=== PATIENT | male | born 1955 | race Caucasian/White ===

== ENCOUNTER 2018-08-26 06:15 | Observation (INO) ==
[2018-08-26] MEDS ORDERED: IOPAMIDOL 100 ML BOTTLE IV ONE (06:16)
--- NOTE | 2018-08-26 06:50 | Emergency Department Note ---
Dizziness HPI - General Chief Complaint: Dizziness Stated Complaint: dizziness, vomit diarrhea Time Seen by Provider: 08/26/18 06:34 Source: patient Mode of arrival: EMS Limitations: no limitations - History of Present Illness HPI Narrative: This 63-year-old male reports onset of multiple episodes of diarrhea beginning around 430 this morning may be up to 10 times. He is also vomited 10- 15 times. He has a long-standing history of diarrhea for which he has taken Imodium off and on in the past year or so. Denies fevers as far as he knows at home. Has felt chills today and sweatiness. REVIEW OF SYSTEMS: Denies chest pain. Denies shortness of breath. Denies abdominal pain, or nausea. Denies hematochezia or hemoptysis. Denies back pain. Denies headaches. Feels generally weak and some lightheaded dizzy feel Denies anxiety, depression. - Related Data Home Medications Medication Instructions Recorded Confirmed baclofen 20 mg tablet 20 mg PO QID 08/16/17 08/26/18 betamethasone dipropionate 0.05 % 1 applic TOPICAL QDAY 08/16/17 09/23/17 topical ointment cyclosporine 0.05 % eye drops 1 drp OPHTHALMIC Q12H 08/16/17 09/23/17 indomethacin 50 mg capsule 50 mg PO BID 08/16/17 08/26/18 cholecalciferol (vitamin D3) 2,000 2,000 unit PO ONCE 09/23/17 09/23/17 unit capsule Allergies Allergy/AdvReac Type Severity Reaction Status Date / Time No Known Drug Allergies Allergy Verified 09/23/17 13:47 Past Medical History - Past Medical History [facility] Narrative: Medical History (Last Updated 08/26/18 @ 06:38 by Raul Tierney DO) Viral hepatitis C (Chronic) Osteoarthritis (Chronic) GERD (gastroesophageal reflux disease) (Chronic) Bronchiectasis (Chronic) Snoring (Chronic) Back pain (Chronic) Urticaria (Chronic) Abnormal chest CT (Chronic) Degeneration of lumbar or lumbosacral intervertebral disc (Chronic) Glaucoma (Chronic) Arthralgia (Chronic) Irritable bowel syndrome with diarrhea (Chronic) Chronic diarrhea (Chronic) Multiple nodules of lung (Chronic) Low tension glaucoma (Chronic) Exposure to air pollution (Chronic) Disturbance of oral epithelium (Chronic) Cannabis dependence in remission (Chronic) Asbestos exposure (Chronic) BPH with obstruction/lower urinary tract symptoms (Chronic) Right knee pain (Chronic) Sigmoid diverticulosis (Chronic) Dermatofibroma (Chronic) Blurred vision (Resolved) Closed fracture of wrist (Resolved) Constipation (Resolved) Hiatal hernia (Resolved) Keratosis (Resolved) Pneumonia (Resolved) Shoulder pain (Resolved) Testicular nodule (Resolved) Vitamin D deficiency (Resolved) Past Surgical History (Last Updated 08/26/18 @ 06:40 by Raul Tierney DO) Status post cataract extraction (Acute) History of colonoscopy with polypectomy (Chronic 03/25/13) History of esophagogastroduodenoscopy (EGD) (Chronic 03/25/13) History of herniorrhaphy (Chronic) History of liver biopsy (Chronic) History of open reduction and internal fixation (ORIF) procedure (Chronic) History of surgery (Chronic) S/P hernia repair (Resolved) Family History (Last Reviewed 09/23/17 @ 14:32 by Jordan Ramos MD) Mother Diabetes Pulmonary disease Father Heart disease Brother Cancer Sister Cancer Medical history: Reports: hypertension (maybe). Denies: CVA, DVT, myocardial infarction, pulmonary embolus - Social History smoking status: Never smoker Physical Exam Limitations: no limitations General appearance: alert, other (persisting eyes closed (to reduce dizziness)) Head: atraumatic, normocephalic ENT: mucous membranes dry Neck: Present: trachea midline. Absent: lymphadenopathy, thyromegaly Chest: Present: symmetric chest wall rise Respiratory: Present: normal lung sounds bilaterally. Absent: respiratory distress, wheezes, stridor, accessory muscle use, prolonged expiratory phase Cardiovascular: Present: regular rate, normal rhythm. Absent: systolic murmur, diastolic murmur Abdominal: Present: soft. Absent: distention, tenderness, guarding, rebound, rigidity, organomegaly, mass Extremities: Absent: pedal edema, pretibial edema, calf tenderness Neurological: Present: alert, oriented X3 Psychiatric: Present: flat affect, serious, other (Quiet voice) Skin: Present: warm, dry Course Vital Signs Temperature 96.4 F L 08/26/18 06:16 Pulse Rate 72 08/26/18 06:16 Respiratory Rate 18 08/26/18 06:16 Blood Pressure 151/94 08/26/18 06:16 Pulse Oximetry (%) 96 08/26/18 06:16 Temperature 96.4 F L 08/26/18 06:16 Pulse Rate 71 08/26/18 08:31 Respiratory Rate 18 08/26/18 06:16 Blood Pressure 146/91 08/26/18 08:31 Pulse Oximetry (%) 98 08/26/18 08:31 Dizziness - MDM Narrative Medical decision making narrative: 6:40 AM - acute onset of vomiting and diarrhea on a background of some chronic diarrhea. We will do labs in give some fluids. Patient was given an IV bolus of lactated Ringer's 1 L and was feeling some better with some eye opening but still complaining that things were very shaky in his vision. No specific vertigo. An additional 500 of LR ordered. Labs were unremarkable. Patient is given a dose of Compazine 10 mg. Because of recurring back spasms he has been on baclofen at home and requests this. Robaxin available for IV use ordered. Final disposition because of change in shift per Dr. Salcedo. - Lab Data Result diagrams: 08/26/18 07:06 08/26/18 07:06 Lab Results 08/26/18 08/26/18 Range/Units 07:06 07:06 WBC 7.8 (4.5-11.0) K/mcL RBC 5.13 (4.50-5.90) M/mcL Hgb 16.1 (13.5-16.5) g/dL Hct 48.9 (41.0-55.0) % MCV 95.3 (80.0-100.0) fL MCH 31.4 (26.0-34.0) pg MCHC 33.0 (31.0-36.0) g/dL RDW 12.1 (11.5-14.5) % Plt Count 178 (140-440) K/mcL MPV 8.4 (7.4-10.4) fL Gran % 85.9 H (38.0-78.0) % Lymph % (Auto) 10.8 L (15.5-49.0) % [place] % (Auto) 2.2 (1.0-12.0) % Eos % (Auto) 1.0 (0.0-7.0) % Baso % (Auto) 0.1 (0.0-2.0) % Gran # 6.7 (1.8-8.0) K/mcL Lymph # (Auto) 0.8 L (1.5-4.8) K/mcL [place] # (Auto) 0.2 (0.1-0.9) K/mcL Eos # (Auto) 0.1 (0.0-0.7) K/mcL Baso # (Auto) 0 (0.0-0.3) K/mcL Sodium 143 (133-145) mmol/L Potassium 4.4 (3.3-5.1) mmol/L Chloride 108 (96-108) mmol/L Carbon Dioxide 27 (22-30) mmol/L Anion Gap 8.0 (8-16) BUN 13 (8-23) mg/dl Creatinine 0.9 (0.7-1.2) mg/dl GFR Calculation 91 Glucose 155 H (70-105) mg/dL Calcium 9.0 (8.6-10.4) mg/dl Total Bilirubin 0.7 (0.0-1.0) mg/dL AST 21 (0-37) U/l ALT 25 (0-40) U/l Alkaline Phosphatase 42 (39-117) U/L C-Reactive Protein < 0.3 (0.0-0.8) mg/dl Total Protein 7.0 (5.9-8.4) gm/dL Albumin 4.3 (3.2-5.2) gm/dL Globulin 2.7 (2.2-3.7) gm/dL Albumin/Globulin Ratio 1.6 (1.0-2.3) Disposition Pt seen by REHAB DIRECTOR/PA only: No Clinical Impression: Visual disturbance, Nausea, vomiting and diarrhea Disposition: Still a Patient Condition: Undetermined Referrals: Tripp Joseph [Primary Care Provider] -
[2018-08-26] MEDS ORDERED: LACTATED RINGERS 1,000 ML IV ONE (06:53)
[2018-08-26 08:06] LABS: Basophils # (Auto) 0 K/mcL (0.0-0.3); Basophils % (Auto) 0.1 % (0.0-2.0); Eosinophils # (Auto) 0.1 K/mcL (0.0-0.7); Granulocytes % (Auto) 85.9 % (38.0-78.0); Lymphocytes # (Auto) 0.8 K/mcL (1.5-4.8); Lymphocytes % (Auto) 10.8 % (15.5-49.0); Mean Cell Volume 95.3 fL (80.0-100.0); Monocytes # (Auto) 0.2 K/mcL (0.1-0.9); Monocytes % (Auto) 2.2 % (1.0-12.0); Platelet Count 178 K/mcL (140-440); RBC 5.13 M/mcL (4.50-5.90); Red Cell Distribution Width 12.1 % (11.5-14.5)
[2018-08-26 08:27] LABS: ALT/SGPT 25 U/l (0-40); Albumin 4.3 gm/dL (3.2-5.2); Albumin/Globulin Ratio 1.6 (1.0-2.3); Alkaline Phosphatase 42 U/L (39-117); Blood Urea Nitrogen 13 mg/dl (8-23); C-Reactive Protein < 0.3 mg/dl (0.0-0.8)
[2018-08-26] MEDS ORDERED: PROCHLORPERAZINE 10 MG/2 ML VIAL IV ONE (08:39)
[2018-08-26] MEDS ORDERED: METHOCARBAMOL 1,000 MG/10 ML VIAL IV ONE (08:41)
[2018-08-26] MEDS ORDERED: LACTATED RINGERS 500 ML IV ONE (08:56)
[2018-08-26] MEDS ORDERED: MECLIZINE 25 MG TABLET PO ONE (10:17)
[2018-08-26] MEDS ORDERED: METOCLOPRAMIDE 10 MG/2 ML VIAL IV ONE (10:17)
--- NOTE | 2018-08-26 14:15 | Cat Scan Report ---
CLINICAL INFORMATION: Vertigo COMPARISON: None. TECHNIQUE: Axial noncontrast-enhanced images through the brain. FINDINGS: No acute intracranial hemorrhage. No subdural hematoma. No subarachnoid hemorrhage. No intra-axial hematoma. No focal intra-axial attenuation abnormality. No localized mass effect. No midline shift. Brain volume is normal. No hydrocephalus. Brainstem and cerebellum are negative. Basilar cisterns are normal. No hyperdense middle cerebral artery sign. No calvarial fracture. No lytic lesion. Temporal bones are negative. There is inflammatory disease within ethmoid and sphenoid sinuses. IMPRESSION: 1. Inflammatory disease within ethmoid and sphenoid sinuses 2. Otherwise negative noncontrast enhanced brain CT scan The exam was performed using radiation dose optimization techniques including, but not limited to, automated exposure control, adjustment of the mA and/or kV according to patient size and use of iterative reconstruction technique. Interpreted and Authenticated by: Lm Joe 08/26/18
--- NOTE | 2018-08-26 14:37 | Cat Scan Report ---
CLINICAL INFORMATION: Vomiting. Diarrhea. TECHNIQUE: Axial images through the neck. 80 mL contrast material injected. Scans performed during arterial phase. Sagittal and coronal MIP reformatted images. MPR reformatted images. COMPARISON: Brain CT scan dated 08/26/2018 FINDINGS: Centrilobular emphysema in both upper lobes. Appearance suggests smoking history. No focal mass or consolidation. No superior mediastinal adenopathy. Calcified atherosclerotic plaque in the aortic arch. There is calcified plaque at the origin of the left subclavian artery. No stenosis. There is calcified plaque at the origin of the left vertebral artery. There is no stenosis. Origin of the left common carotid artery is negative. Origin of the innominate artery is negative. No focal stenosis. There is calcification at the origins of the right common carotid artery and right subclavian artery. No origin stenosis. Origin of the right vertebral artery is negative. No stenosis. There is calcified plaque in the proximal internal carotid artery bilaterally. There is mild soft plaque in the distal right common carotid artery. There is no hemodynamically significant stenosis. No ulceration. No evidence for fibromuscular dysplasia. No internal carotid artery dissection. Vertebral arteries are patent without focal stenosis. No solid or cystic soft tissue mass within the neck. No prevertebral soft tissue swelling. There is multilevel degenerative disc disease in the cervical spine. IMPRESSION: 1. Calcified atherosclerotic plaque in the proximal internal carotid artery bilaterally 2. No hemodynamically significant stenosis. No ulceration 3. No hemodynamically significant stenosis Interpreted and Authenticated by: Lm Joe 08/26/18
--- NOTE | 2018-08-26 14:51 | Cat Scan Report ---
CLINICAL INFORMATION: Vomiting and diarrhea TECHNIQUE: CTA brain performed. 80 mL contrast material injected and scans performed during arterial phase. Sagittal and coronal MIP reformatted images. COMPARISON: None. FINDINGS: The petrous, cavernous, supraclinoid segments of the internal carotid arteries are negative bilaterally. M1 segments and middle cerebral arteries and A1 segments and the anterior cerebral arteries are negative. Intracranial vertebral arteries are negative. Basilar artery is negative. No intracranial aneurysm or arteriovenous malformation. No branch occlusion. There is inflammatory disease within the ethmoid and sphenoid air cells. This was described on previous brain CT scan. There are also small polyps or retention cysts in the right maxillary sinus. Temporal bones are negative. IMPRESSION: Negative brain CTA. Interpreted and Authenticated by: Lm Joe 08/26/18
[2018-08-26] MEDS ORDERED: ACETAMINOPHEN 325 MG TABLET PO ONE (14:59)
[2018-08-26] MEDS ORDERED: diphenhydrAMINE 50 MG/ML VIAL IV ONE (15:01)
[2018-08-26] MEDS ORDERED: HYDROmorphone 2 MG/ML VIAL IV PRN (15:01)
--- NOTE | 2018-08-26 15:07 | Emergency Department Note ---
Dizziness HPI - General Chief Complaint: Dizziness Stated Complaint: dizziness, vomit diarrhea Time Seen by Provider: 08/26/18 06:34 Source: patient Mode of arrival: EMS Limitations: no limitations - History of Present Illness HPI Narrative: This patient seems very debilitated by his benign positional vertigo and is developed a headache. I did do CT of head which was normal and CTA of head and neck which was normal except for some mild plaquing in the carotid arteries. I discussed case with Dr. Mosqueda and he will be admitted to the hospital. - Related Data Home Medications Medication Instructions Recorded Confirmed baclofen 20 mg tablet 20 mg PO QID 08/16/17 08/26/18 betamethasone dipropionate 0.05 % 1 applic TOPICAL QDAY 08/16/17 09/23/17 topical ointment cyclosporine 0.05 % eye drops 1 drp OPHTHALMIC Q12H 08/16/17 09/23/17 indomethacin 50 mg capsule 50 mg PO BID 08/16/17 08/26/18 cholecalciferol (vitamin D3) 2,000 2,000 unit PO ONCE 09/23/17 09/23/17 unit capsule Allergies Allergy/AdvReac Type Severity Reaction Status Date / Time No Known Drug Allergies Allergy Verified 09/23/17 13:47 Past Medical History - Past Medical History Medical history: Reports: hypertension (maybe). Denies: CVA, DVT, myocardial infarction, pulmonary embolus - Social History smoking status: Never smoker Physical Exam Limitations: no limitations General appearance: alert, other (persisting eyes closed (to reduce dizziness)) Course Vital Signs Temperature 96.4 F L 08/26/18 06:16 Pulse Rate 72 08/26/18 06:16 Respiratory Rate 18 08/26/18 06:16 Blood Pressure 151/94 08/26/18 06:16 Pulse Oximetry (%) 96 08/26/18 06:16 Temperature 96.4 F L 08/26/18 06:16 Pulse Rate 107 H 08/26/18 14:15 Respiratory Rate 18 08/26/18 06:16 Blood Pressure 136/79 08/26/18 14:04 Pulse Oximetry (%) 93 08/26/18 14:15 Dizziness - Lab Data Result diagrams: 08/26/18 07:06 08/26/18 07:06 Lab Results 08/26/18 08/26/18 Range/Units 07:06 07:06 WBC 7.8 (4.5-11.0) K/mcL RBC 5.13 (4.50-5.90) M/mcL Hgb 16.1 (13.5-16.5) g/dL Hct 48.9 (41.0-55.0) % MCV 95.3 (80.0-100.0) fL MCH 31.4 (26.0-34.0) pg MCHC 33.0 (31.0-36.0) g/dL RDW 12.1 (11.5-14.5) % Plt Count 178 (140-440) K/mcL MPV 8.4 (7.4-10.4) fL Gran % 85.9 H (38.0-78.0) % Lymph % (Auto) 10.8 L (15.5-49.0) % [place] % (Auto) 2.2 (1.0-12.0) % Eos % (Auto) 1.0 (0.0-7.0) % Baso % (Auto) 0.1 (0.0-2.0) % Gran # 6.7 (1.8-8.0) K/mcL Lymph # (Auto) 0.8 L (1.5-4.8) K/mcL [place] # (Auto) 0.2 (0.1-0.9) K/mcL Eos # (Auto) 0.1 (0.0-0.7) K/mcL Baso # (Auto) 0 (0.0-0.3) K/mcL Sodium 143 (133-145) mmol/L Potassium 4.4 (3.3-5.1) mmol/L Chloride 108 (96-108) mmol/L Carbon Dioxide 27 (22-30) mmol/L Anion Gap 8.0 (8-16) BUN 13 (8-23) mg/dl Creatinine 0.9 (0.7-1.2) mg/dl GFR Calculation 91 Glucose 155 H (70-105) mg/dL Calcium 9.0 (8.6-10.4) mg/dl Total Bilirubin 0.7 (0.0-1.0) mg/dL AST 21 (0-37) U/l ALT 25 (0-40) U/l Alkaline Phosphatase 42 (39-117) U/L C-Reactive Protein < 0.3 (0.0-0.8) mg/dl Total Protein 7.0 (5.9-8.4) gm/dL Albumin 4.3 (3.2-5.2) gm/dL Globulin 2.7 (2.2-3.7) gm/dL Albumin/Globulin Ratio 1.6 (1.0-2.3) Disposition Pt seen by BRANCH CREDIT COUNSELOR/PA only: No Clinical Impression: Visual disturbance, Nausea, vomiting and diarrhea, Benign positional vertigo Disposition: Xfer As Outpt/Obs ([facility]) Condition: Good Referrals: Tripp Joseph [Primary Care Provider] - Time of Disposition: 15:07
--- NOTE | 2018-08-26 15:12 | Internal Med History&Physical ---
Medical - H&P: HPI Patient information: Note initiated : 08/26/18 at 3:11 pm Service Date, if different from initiated Date: [] Patient: Oliverio Her a 63 y/o M admitted on for Dizziness, Vomiting, Diarrhea. Chief Complaint: [] Chief complaint: dirrhea, vertigo History of present illness: Mr. Her is a 63 year old M with a history of substance abuse in the past/hepatitis C treated with [employer] who works at [employer] in [employer]. [facility] he woke up this morning and did not half an hour started experiencing dizziness/vertigo associated with diarrhea 8-10 jackson es. Symptoms progressed with increasing nausea secondary to spinning sensation. He felt that he was drifting to the left while walking and driving. He denies recent sick contact. Endorses to nonbloody soft diarrhea. He denies recent medication changes. He endorses associated headache along with myalgia or neck stiffness and mild photophobia. He was evaluated in the ER and was continued on crystalloids and symptomatic management however his symptoms continue to deteriorate with relentless vertigo on minimal head movement. He also spiked a temperature of 101. He underwent CT head along with CT angiogram which was unremarkable. Subsequently hospitalist service is consulted At the time of evaluation patient is fairly distraught due to vertigo. He endorses to aggravation of symptoms with minimal movement. Denies recent changes in medications. He endorses to recent ear infection along with painful left ear 10 days ago. Denies projectile vomiting. He also endorses dysuria and worried about chlamydia infection from recent unprotected intercourse. He denies high risk HIV behavior and quit IVDU 27 years ago. Review of systems A 10 point review of systems was performed and is negative except as discussed above Medical - H&P: PMH Medical history: Snoring (Chronic) Back pain (Chronic) Urticaria (Chronic) Degeneration of lumbar or lumbosacral intervertebral disc (Chronic) Closed fracture of wrist (Chronic) Pneumonia (Chronic) Blurred vision (Chronic) Keratosis (Chronic) Dermatofibroma (Chronic) Arthralgia (Chronic) URI (upper respiratory infection) (Chronic) Irritable bowel syndrome with diarrhea (Chronic) Shoulder pain (Chronic) Chronic diarrhea (Chronic) Constipation (Chronic) Multiple nodules of lung (Chronic) Adenopathy (Chronic) Low tension glaucoma (Chronic) Pharyngitis (Chronic) Exposure to air pollution (Chronic) Disturbance of oral epithelium (Chronic) h/o left buccal mucosal/recess lesion Cannabis dependence in remission (Chronic) Asbestos exposure (Chronic) BPH with obstruction/lower urinary tract symptoms (Chronic) Otalgia (Chronic) Viral hepatitis C (Chronic) S/P hernia repair (Resolved) Surgical History Follows up with [facility] No pertinent past surgical history (Acute) Family History Mother , 74 yrs Diabetes Pulmonary disease Father , 75 yrs Heart disease Brother , 2 brothers Cancer Sister Cancer 4 total sisters, 2 with cancer Medical - H&P: Meds Home Medications Medication Instructions Recorded Confirmed Type baclofen 20 mg tablet 20 mg PO QID 08/16/17 08/26/18 History cholecalciferol (vitamin D3) 2,000 2,000 unit PO ONCE 09/23/17 08/26/18 History unit capsule Multivit,Th Iron,Other Min 1 each PO DAILY 08/26/18 08/26/18 History [Complete Multivitamin] Allergies Allergy/AdvReac Type Severity Reaction Status Date / Time No Known Drug Allergies Allergy Verified 09/23/17 13:47 Medical - H&P: Exam - Constitutional Vitals: Temp Pulse Resp BP Pulse Ox 96.4 F L 107 H 18 136/79 93 08/26/18 06:16 08/26/18 14:15 08/26/18 06:16 08/26/18 14:04 08/26/18 14:15 General appearance: moderate distress (Secondary to vertigo) Exam: Head normocephalic Eye movement symmetrical, no diplopia No ear or nose discharged Oral cavity dry Neck no lymphadenopathy S1-S2 tachycardia Diminished breath sounds bases Abdomen soft Lower extremity no cyanosis clubbing Skin no suspicious lesion Psych alert but anxious Neuro nonfocal Medical - H&P: Reslt - Labs CBC & Chem 7: 08/26/18 07:06 08/26/18 07:06 Labs: Short CBC 08/26/18 Range/Units 07:06 WBC 7.8 (4.5-11.0) K/mcL Hgb 16.1 (13.5-16.5) g/dL Hct 48.9 (41.0-55.0) % Plt Count 178 (140-440) K/mcL BMP 08/26/18 07:06 Sodium 143 Potassium 4.4 Chloride 108 Carbon Dioxide 27 BUN 13 Creatinine 0.9 Glucose 155 H Calcium 9.0 Liver Function 08/26/18 Range/Units 07:06 Total Bilirubin 0.7 (0.0-1.0) mg/dL AST 21 (0-37) U/l ALT 25 (0-40) U/l Alkaline Phosphatase 42 (39-117) U/L Albumin 4.3 (3.2-5.2) gm/dL Medical - H&P: A/P (1) Vertigo Current visit: Yes Status: Acute * Fever/headache-rule out acute meningitis. Start empiric antibiotic coverage. Lumbar puncture * Acute vertigo-etiology in question. Rule out acute infectious labyrinthitis versus basilar CVA versus positional vertigo. MRI/lumbar puncture. * Diarrhea-supportive management * Headache-as needed analgesic * Full code * Prophylaxis heparin Plan * Telemetry admit * Empiric meningitis treatment * Lumbar puncture * MRI brain * Vertigo evaluation
[2018-08-26] MEDS ORDERED: diphenhydrAMINE 50 MG/ML VIAL IV PRN (16:33)
[2018-08-26] MEDS ORDERED: guaiFENesin/CODEINE 10 ML UDC PO PRN (16:33)
[2018-08-26] MEDS ORDERED: ACETAMINOPHEN 1,000 MG/100 ML BOTTLE IV PRN (16:33)
[2018-08-26] MEDS ORDERED: POTASSIUM CHLORIDE 20 MEQ PACKET PO PRN (16:33)
[2018-08-26] MEDS ORDERED: MAGNESIUM SULFATE 2 GM/50 ML BAG IV PRN (16:33)
[2018-08-26] MEDS ORDERED: VANCOMYCIN PER PHARMACY IV SCH (17:06)
[2018-08-26] MEDS ORDERED: ACYCLOVIR SODIUM 500 MG VIAL IV SCH (17:15)
[2018-08-26] MEDS: 0.9 % SODIUM CHLORIDE 1,000 ML IV SCH (17:30)
[2018-08-26] MEDS ORDERED: KETAMINE 100 MG/ML ML IV ONE (18:00)
[2018-08-26] MEDS ORDERED: MIDAZOLAM 5 MG/5 ML VIAL IV ONE (18:00)
[2018-08-26] MEDS ORDERED: VANCOMYCIN 500 MG in 0.9 % SODIUM CHLORIDE 100 ML IV SCH (18:00)
[2018-08-26 18:50] LABS: C-Reactive Protein < 0.3 mg/dl (0.0-0.8)
[2018-08-26] MEDS ORDERED: ACYCLOVIR SODIUM IV ONE (19:00)
[2018-08-26] MEDS ORDERED: SODIUM CHLORIDE 0.9% IV ONE (19:00)
[2018-08-26] MEDS: cefTRIAXone 2 GM in DEXTROSE 5% IN WATER 50 ML IV SCH (19:00)
[2018-08-26] MEDS: VANCOMYCIN 1,500 MG in 0.9 % SODIUM CHLORIDE 500 ML IV SCH (19:15)
[2018-08-26 19:21] LABS: Glucose,CSF 76 mg/dL (45-75)
[2018-08-26 19:41] LABS: Appearance,Urine CLEAR; Bilirubin,Urine NEG (NEG); Color,Urine YELLOW; Glucose,Urine (UA) NEGATIVE (NEG); Leukocyte Esterase,Urine NEG /uL (NEG); Protein,Urine NEG (NEG); Specific Gravity,Urine 1.051 (1.000-1.035); Urine Blood NEG mg/dL (<0.03); Urobilinogen,Urine NEG (NEG)
[2018-08-26] MEDS: BUTALB/ACETAMINOPHEN/CAFFEINE 1 TABLET PO PRN (20:04)
[2018-08-26 20:06] LABS: Appearance,CSF CLEAR
[2018-08-26 20:43] LABS: Nucleated Cells,CSF 1 /cumm (0-5); Red Blood Cell,CSF 34 /cumm (0-1)
[2018-08-26 20:48] LABS: Lymphocytes,CSF 30 % (40-80); Monocytes,CSF 70 % (15-45); Total Cell Ct,CSF 10
[2018-08-26] MEDS: 0.9 % SODIUM CHLORIDE 10 ML SYRINGE IV SCH (21:05)
[2018-08-26] MEDS: HEPARIN 5,000 UNIT/ML VIAL SQ SCH (21:38)
[2018-08-26] MEDS: DOCUSATE SODIUM 100 MG CAPSULE PO SCH (21:39)
[2018-08-26] MEDS: SENNOSIDES/DOCUSATE SODIUM 1 TAB TABLET PO SCH (21:39)
[2018-08-27] MEDS ORDERED: ACYCLOVIR SODIUM 800 MG in 0.9 % SODIUM CHLORIDE 150 ML IV SCH (03:00)
[2018-08-27] MEDS: 0.9 % SODIUM CHLORIDE 10 ML SYRINGE IV SCH ×3 (05:28→20:22)
[2018-08-27 06:46] LABS: Mean Cell Volume 95.9 fL (80.0-100.0); Mean Corpuscular HGB Conc 33.3 g/dL (31.0-36.0); Platelet Count 170 K/mcL (140-440); RBC 4.52 M/mcL (4.50-5.90); Red Cell Distribution Width 12.1 % (11.5-14.5)
[2018-08-27 07:12] LABS: ALT/SGPT 19 U/l (0-40); Albumin 3.8 gm/dL (3.2-5.2); Albumin/Globulin Ratio 1.7 (1.0-2.3); Alkaline Phosphatase 37 U/L (39-117); Bilirubin,Direct < 0.2 mg/dL (0.0-0.3); Blood Urea Nitrogen 10 mg/dl (8-23); Gamma Glutamyl Transpeptidase 12 U/L (8-61); Uric Acid 4.4 mg/dL (2.5-8.0)
[2018-08-27 07:51] LABS: Eosinophils % (Manual) 1 % (0-7); Lymphocytes % 25 % (15-49); Monocytes % (Manual) 4 % (1-12); Platelet Estimate NORMAL (NORMAL); RBC Morphology NORMAL (NORMAL); Segmented Neutrophils % 67 % (38-78)
[2018-08-27] MEDS: cefTRIAXone 2 GM in DEXTROSE 5% IN WATER 50 ML IV SCH (09:03)
[2018-08-27] MEDS: VANCOMYCIN 1,500 MG in 0.9 % SODIUM CHLORIDE 500 ML IV SCH ×2 (09:03→20:20)
[2018-08-27] MEDS: MULTIVIT,THER IRON,CA,FA & MIN 1 TABLET PO SCH (09:04)
[2018-08-27] MEDS: DOCUSATE SODIUM 100 MG CAPSULE PO SCH ×2 (09:04→20:22)
[2018-08-27] MEDS: HEPARIN 5,000 UNIT/ML VIAL SQ SCH ×2 (09:04→20:21)
[2018-08-27] MEDS ORDERED: MECLIZINE 25 MG TABLET PO PRN (11:15)
--- NOTE | 2018-08-27 11:16 | Internal Med Progress Note ---
Medical - PN: Subj Patient information: Note initiated : 08/27/18 at 11:14 am Service Date, if different from initiated Date: [] Patient: Oliverio Her a 63 y/o M admitted on 08/26/18 for Dizziness, Vomiting, Diarrhea. Chief Complaint: [] Interval history: Mr. Her is a 63 year old M with a history of substance abuse in the past/hepatitis C treated with [employer] who works at [employer] in [employer]. Patient comes in to [facility] after he woke up this morning and did not half an hour started experiencing dizziness/vertigo associated with diarrhea 8-10 times. Symptoms progressed with increasing nausea secondary to spinning sensation. He felt that he was drifting to the left while walking and driving. He denies recent sick contact. Endorses to nonbloody soft diarrhea. He denies recent medication changes. He endorses associated headache along with myalgia or neck stiffness and mild photophobia. He was evaluated in the ER and was continued on crystalloids and symptomatic management however his symptoms continue to deteriorate with relentless vertigo on minimal head movement. He also spiked a temperature of 101. He underwent CT head along with CT angiogram which was unremarkable. Subsequently hospitalist service is consulted At the time of evaluation patient is fairly distraught due to vertigo. He endorses to aggravation of symptoms with minimal movement. Denies recent changes in medications. He endorses to recent ear infection along with painful left ear 10 days ago. Denies projectile vomiting. He also endorses dysuria and worried about chlamydia infection from recent unprotected intercourse. He denies high risk HIV behavior and quit IVDU 27 years ago. 08/27-patient doing well. No overnight events. Headache improving. Nausea improved. T-max 101. DC acyclovir as CSF studies unremarkable. De-escalate antibiotics in 24 hours. Continue telemetry monitoring. Persistent vertigo but improving. No associated hearing loss. MRI brain unremarkable - Constitutional Vitals: Vital Signs Temp Pulse Resp BP Pulse Ox 98.1 F 76 14 110/70 99 08/27/18 07:39 08/27/18 07:39 08/27/18 07:39 08/27/18 07:39 08/27/18 07:39 Period Temp Pulse Resp BP Sys/Chan Pulse Ox Last 24 Hr 98.1 F-101 F 76-131 12-22 85-153/54-98 90-99 Intake and Output 08/26/18 08/27/18 08/27/18 21:59 05:59 13:59 Intake Total 600 350 50 Output Total 550 400 300 Balance 50 -50 -250 Weight 232 lb 12.8 oz Intake & Output: Intake & Output 08/26/18 08/27/18 08/27/18 21:59 05:59 13:59 Intake Total 600 350 50 Output Total 550 400 300 Balance 50 -50 -250 Weight 232 lb 12.8 oz Intake: IV 600 250 Zovirax 800 mg In Sodium 50 150 Chloride 0.9% 150 ml @ 100 mls/ hr IV Q8H [facility] Rx#:[id number] Vancomycin 1,500 mg In Sodium 500 Chloride 0.9% 500 ml @ 333.3 mls/hr IV Q12H [facility] Rx#: [id number] Rocephin 2 gm In Dextrose 5% in 50 Water 50 ml @ 100 mls/hr IV DAILY [facility] Rx#:[id number] Oral 100 50 Output: Void Amount 550 400 300 Other: Urine Appearance Clear Urine Color Dark Yellow Dark Marguerite Stool Size Moderate Stool Color Brown Stool Consistency Soft General appearance: moderate distress Exam: Improved but persistent headache and nausea Persistent vertigo Nonlabored breathing Improved myalgia next stiffness Nondistended abdomen Minimal anxiety Medical - PN: Obj Da - Labs CBC & Chem 7: 08/27/18 03:28 08/27/18 03:28 Labs: Abnormal Lab Results 08/27/18 08/27/18 08/26/18 03:28 03:28 18:40 Gran % Lymph % (Auto) Lymph # (Auto) Reactive Lymphocytes 3 H Glucose Phosphorus 2.3 L Alkaline Phosphatase 37 L Ur Specific [place] 1.051 H Urine Ketones 20 A CSF RBC CSF Lymphocytes CSF Monocytes CSF Glucose 08/26/18 08/26/18 08/26/18 18:13 07:06 07:06 Gran % 85.9 H Lymph % (Auto) 10.8 L Lymph # (Auto) 0.8 L Reactive Lymphocytes Glucose 155 H Phosphorus Alkaline Phosphatase Ur Specific [place] Urine Ketones CSF RBC 34 H CSF Lymphocytes 30 L CSF Monocytes 70 H CSF Glucose 76 H Meds: Medications Acetaminophen (Tylenol) 650 mg PO Q4-6HP PRN PRN Reason: PAIN/FEVER > 101 Acetaminophen/Butalbital/Caffeine (Fioricet) 1 tab PO Q6HP PRN PRN Reason: Headache Last Admin: 08/26/18 20:04 Dose: 1 tab Documented by: Diphenhydramine HCl (Benadryl) 12.5 mg IV Q4HP PRN PRN Reason: Migraine Headache Docusate Sodium (Colace) 100 mg PO BID [facility] Last Admin: 08/27/18 09:04 Dose: Not Given Documented by: Guaifenesin/Codeine Phosphate (Robitussin Ac) 10 ml PO Q4HP PRN PRN Reason: Cough Heparin Sodium (Porcine) (Heparin) 5,000 unit SQ Q12 [facility] Last Admin: 08/27/18 09:04 Dose: 5,000 unit Documented by: Magnesium Sulfate (Magnesium Sulfate) 2 gm in 50 mls @ 50 mls/hr IV UD PRN PRN Reason: MG = or < 1.7 Sodium Chloride (Sodium Chloride 0.9%) 1,000 mls @ 50 mls/hr IV .Q20H [facility] Stop: 08/29/18 04:32 Last Admin: 08/26/18 17:30 Dose: 50 mls/hr Documented by: Acetaminophen (Ofirmev) 1,000 mg in 100 mls @ 200 mls/hr IV Q6HP PRN PRN Reason: PAIN/FEVER > 101 Last Infusion: 08/27/18 04:13 Dose: Infused Documented by: Ceftriaxone Sodium 2 gm/ (Dextrose) 50 mls @ 100 mls/hr IV DAILY [facility] Last Admin: 08/27/18 09:03 Dose: 100 mls/hr Documented by: Vancomycin HCl 1,500 mg/ (Sodium Chloride) 500 mls @ 333.3 mls/hr IV Q12H [facility] Last Admin: 08/27/18 09:03 Dose: 333.3 mls/hr Documented by: Iron Carb/Multivit/[place]/Folic Acid (Multivitamin W/Minerals) 1 tab PO DAILY [facility] Last Admin: 08/27/18 09:04 Dose: 1 tab Documented by: Ondansetron HCl (Zofran) 4 mg IV Q4-6HP PRN PRN Reason: Nausea And Vomiting Potassium Chloride (Klor-Con) 40 meq PO DAILYP PRN PRN Reason: K+ < 3.5 Senna/Docusate Sodium (Senna Plus Tablet) 1 tab PO HS [facility] Last Admin: 08/26/18 21:39 Dose: Not Given Documented by: Sodium Chloride (Saline Flush) 10 ml IV Q8 [facility] Last Admin: 08/27/18 05:28 Dose: 10 ml Documented by: Vancomycin HCl (Vancomycin Per Pharmacy) 1 order IV UD [facility] Medical - PN: A/P - Time Spent With Patient Total time spent is greater than 50% in coordination of care (as documented) at patient's floor/unit and/or counseling patient: 25 - 35 minutes (1) Vertigo Status: Acute Assessment and plan: * Fever/headache-likely acute viral syndrome. No evidence of meningitis on CSF analysis. DC acyclovir. De-escalate antibiotics in 24 hours. MRI brain unremarkable. Normal inflammatory markers. Possibly representing acute viral syndrome * Acute vertigo-etiology in question. Possibly acute viral labyrinthitis versus basilar CVA versus positional vertigo. 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 * Diarrhea-clinically improved. Continue supportive management . * Headache-on as needed analgesics * Full code * Prophylaxis heparin Plan * DC acyclovir and de-escalate antibiotics in 24 hours * Symptomatic/supportive management * Discontinue telemetry monitoring Current Visit: Yes Medical - PN: Qual - VTE Deep Vein Thrombosis/Pulmonary Embolism Present on Admission: No
--- NOTE | 2018-08-27 15:02 | Magnetic Resonance Report ---
CLINICAL INFORMATION: Vomiting. Diarrhea. COMPARISON: CT scan dated 08/26/2018 TECHNIQUE: Sagittal T1 FLAIR images. Axial DWI, T1 FLAIR, T2 FLAIR, T2, GRE. Coronal T2 FSE. FINDINGS: No restricted diffusion. No acute infarction. There is no susceptibility. No hemorrhagic abnormality. Cerebral hemispheres are within normal limits for age. There is mild periventricular increased signal. No well-defined focal intra-axial signal abnormality or localized mass effect. No midline shift. Brain volume is within normal limits for age. Brainstem and cerebellum are negative. No extra-axial, intracranial abnormality. Normal flow void within vessels at the base of the brain. Basilar cisterns are normal. Temporal bones are negative. There is asymmetric aeration of the mastoid air cells. There is mild inflammatory change within ethmoid and maxillary sinuses IMPRESSION: No acute abnormality. Interpreted and Authenticated by: Lm Joe 08/27/18
[2018-08-27] MEDS: ONDANSETRON 4 MG/2 ML VIAL IV PRN (15:33)
[2018-08-27] MEDS: 0.9 % SODIUM CHLORIDE 1,000 ML IV SCH (17:40)
[2018-08-27] MEDS: SENNOSIDES/DOCUSATE SODIUM 1 TAB TABLET PO SCH (20:22)
[2018-08-28 05:39] LABS: Mean Cell Volume 95.3 fL (80.0-100.0); Mean Corpuscular HGB Conc 33.5 g/dL (31.0-36.0); Platelet Count 183 K/mcL (140-440); RBC 4.76 M/mcL (4.50-5.90); Red Cell Distribution Width 11.8 % (11.5-14.5)
[2018-08-28 06:40] LABS: ALT/SGPT 19 U/l (0-40); Albumin 4.3 gm/dL (3.2-5.2); Albumin/Globulin Ratio 1.9 (1.0-2.3); Alkaline Phosphatase 40 U/L (39-117); Bilirubin,Direct < 0.2 mg/dL (0.0-0.3); Blood Urea Nitrogen 10 mg/dl (8-23); Gamma Glutamyl Transpeptidase 15 U/L (8-61); Uric Acid 3.9 mg/dL (2.5-8.0)
[2018-08-28 07:56] LABS: Band Neutrophils % 1 % (0-10); Eosinophils % (Manual) 1 % (0-7); Lymphocytes % 25 % (15-49); Monocytes % (Manual) 6 % (1-12); Platelet Estimate NORMAL (NORMAL); RBC Morphology NORMAL (NORMAL); Segmented Neutrophils % 65 % (38-78)
[2018-08-28] MEDS: ACETAMINOPHEN 325 MG TABLET PO PRN ×3 (09:58→22:37)
[2018-08-28] MEDS: cefTRIAXone 2 GM in DEXTROSE 5% IN WATER 50 ML IV SCH (10:00)
[2018-08-28] MEDS: HEPARIN 5,000 UNIT/ML VIAL SQ SCH ×2 (10:00→21:48)
[2018-08-28] MEDS: DOCUSATE SODIUM 100 MG CAPSULE PO SCH ×2 (10:04→21:48)
[2018-08-28] MEDS: MULTIVIT,THER IRON,CA,FA & MIN 1 TABLET PO SCH (10:04)
--- NOTE | 2018-08-28 10:13 | Internal Med Progress Note ---
Medical - PN: Subj Patient information: Note initiated : 08/28/18 at 10:11 am Service Date, if different from initiated Date: [] Patient: Oliverio Her a 63 y/o M admitted on 08/26/18 for Dizziness, Vomiting, Diarrhea. Chief Complaint: [] Interval history: Mr. Her is a 63 year old M with a history of substance abuse in the past/hepatitis C treated with [email or web address] who works at [employer] in [employer]. Patient comes in to [place] [facility] after he woke up this morning and did not half an hour started experiencing dizziness/vertigo associated with diarrhea 8-10 times. Symptoms progressed with increasing nausea secondary to spinning sensation. He felt that he was drifting to the left while walking and driving. He denies recent sick contact. Endorses to nonbloody soft diarrhea. He denies recent medication changes. He endorses associated headache along with myalgia or neck stiffness and mild photophobia. He was evaluated in the ER and was continued on crystalloids and symptomatic management however his symptoms continue to deteriorate with relentless vertigo on minimal head movement. He also spiked a temperature of 101. He underwent CT head along with CT angiogram which was unremarkable. Subsequently hospitalist service is consulted At the time of evaluation patient is fairly distraught due to vertigo. He endorses to aggravation of symptoms with minimal movement. Denies recent changes in medications. He endorses to recent ear infection along with painful left ear 10 days ago. Denies projectile vomiting. He also endorses dysuria and worried about chlamydia infection from recent unprotected intercourse. He denies high risk HIV behavior and quit IVDU 27 years ago. 08/27-patient doing well. No overnight events. Headache improving. Nausea improved. T-max 101. DC acyclovir as CSF studies unremarkable. De-escalate antibiotics in 24 hours. Continue telemetry monitoring. Persistent vertigo but improving. No associated hearing loss. MRI brain unremarkable 06/27-persistent vertigo. However much improved since previous day. Ambulating. Diarrhea resolved. Tolerating diet. Intermittent wheezing sensation. T-max 98. No overnight fever or chills. Occasional headache. No other concerns expressed by nursing staff. Continue supportive treatment/rehab however unable to discharge today due to persistent vertigo and not resolution of presenting symptoms. Anticipate discharge in 24-48 hours - Constitutional Vitals: Vital Signs Temp Pulse Resp BP Pulse Ox 97.3 F 71 16 147/91 96 08/28/18 07:21 08/28/18 07:21 08/28/18 07:21 08/28/18 07:21 08/28/18 07:21 Period Temp Pulse Resp BP Sys/Chan Pulse Ox Last 24 Hr 97.3 F-98.8 F 71-101 16-18 136-153/82-97 94-96 Intake and Output 08/27/18 08/28/18 08/28/18 21:59 05:59 13:59 Intake Total 550 150 240 Output Total 425 400 Balance 125 -250 240 Weight 172 lb 8 oz Intake & Output: Intake & Output 08/27/18 08/28/18 08/28/18 21:59 05:59 13:59 Intake Total 550 150 240 Output Total 425 400 Balance 125 -250 240 Weight 172 lb 8 oz Intake: IV 500 Vancomycin 1,500 mg In Sodium 500 Chloride 0.9% 500 ml @ 333.3 mls/hr IV Q12H [facility] Rx#: [id number] Oral 50 150 240 Output: Void Amount 425 400 Other: Meal Breakfast Percent of Meal Consumed 10 Feeding Ability Independent Urine Appearance Clear Urine Color Pale # Voids 1 1 General appearance: moderate distress (Persistent vertigo) Exam: Mild anxiety Alert oriented Nonlabored breathing Nondistended abdomen No lymphedema Medical - PN: Obj Da - Labs CBC & Chem 7: 08/28/18 04:06 08/28/18 04:06 Labs: Abnormal Lab Results 08/28/18 08/27/18 08/27/18 04:06 03:28 03:28 Gran % Lymph % (Auto) Lymph # (Auto) Reactive Lymphocytes 3 H Glucose Phosphorus 2.1 L 2.3 L Alkaline Phosphatase 37 L Ur Specific [place] Urine Ketones CSF RBC CSF Lymphocytes CSF Monocytes CSF Glucose 08/26/18 08/26/18 08/26/18 18:40 18:13 07:06 Gran % Lymph % (Auto) Lymph # (Auto) Reactive Lymphocytes Glucose 155 H Phosphorus Alkaline Phosphatase Ur Specific [place] 1.051 H Urine Ketones 20 A CSF RBC 34 H CSF Lymphocytes 30 L CSF Monocytes 70 H CSF Glucose 76 H 08/26/18 07:06 Gran % 85.9 H Lymph % (Auto) 10.8 L Lymph # (Auto) 0.8 L Reactive Lymphocytes Glucose Phosphorus Alkaline Phosphatase Ur Specific [place] Urine Ketones CSF RBC CSF Lymphocytes CSF Monocytes CSF Glucose Meds: Medications Acetaminophen (Tylenol) 650 mg PO Q4-6HP PRN PRN Reason: PAIN/FEVER > 101 Last Admin: 08/28/18 09:58 Dose: 650 mg Documented by: Acetaminophen/Butalbital/Caffeine (Fioricet) 1 tab PO Q6HP PRN PRN Reason: Headache Last Admin: 08/26/18 20:04 Dose: 1 tab Documented by: Diphenhydramine HCl (Benadryl) 12.5 mg IV Q4HP PRN PRN Reason: Migraine Headache Docusate Sodium (Colace) 100 mg PO BID [facility] Last Admin: 08/28/18 10:04 Dose: Not Given Documented by: Guaifenesin/Codeine Phosphate (Robitussin Ac) 10 ml PO Q4HP PRN PRN Reason: Cough Heparin Sodium (Porcine) (Heparin) 5,000 unit SQ Q12 [facility] Last Admin: 08/28/18 10:00 Dose: 5,000 unit Documented by: Magnesium Sulfate (Magnesium Sulfate) 2 gm in 50 mls @ 50 mls/hr IV UD PRN PRN Reason: MG = or < 1.7 Acetaminophen (Ofirmev) 1,000 mg in 100 mls @ 200 mls/hr IV Q6HP PRN PRN Reason: PAIN/FEVER > 101 Last Infusion: 08/27/18 04:13 Dose: Infused Documented by: Ceftriaxone Sodium 2 gm/ (Dextrose) 50 mls @ 100 mls/hr IV DAILY [facility] Last Admin: 08/28/18 10:00 Dose: 100 mls/hr Documented by: Vancomycin HCl 1,500 mg/ (Sodium Chloride) 500 mls @ 333.3 mls/hr IV Q12H [facility] Last Infusion: 08/27/18 21:50 Dose: Infused Documented by: Iron Carb/Multivit/[place]/Folic Acid (Multivitamin W/Minerals) 1 tab PO DAILY [facility] Last Admin: 08/28/18 10:04 Dose: Not Given Documented by: Meclizine HCl (Antivert) 12.5 mg PO BIDP PRN PRN Reason: Vertigo Ondansetron HCl (Zofran) 4 mg IV Q4-6HP PRN PRN Reason: Nausea And Vomiting Last Admin: 08/27/18 15:33 Dose: 4 mg Documented by: Potassium Chloride (Klor-Con) 40 meq PO DAILYP PRN PRN Reason: K+ < 3.5 Senna/Docusate Sodium (Senna Plus Tablet) 1 tab PO [facility] Last Admin: 08/27/18 20:22 Dose: Not Given Documented by: Vancomycin HCl (Vancomycin Per Pharmacy) 1 order IV UD [facility] Medical - PN: A/P - Time Spent With Patient Total time spent is greater than 50% in coordination of care (as documented) at patient's floor/unit and/or counseling patient: 25 - 35 minutes (1) Vertigo Status: Acute Assessment and plan: * Fever/headache-likely acute viral syndrome. No evidence of meningitis on CSF analysis. DC antibiotics. MRI brain unremarkable. Normal inflammatory markers. Possibly representing acute viral syndrome * Acute vertigo-etiology in question. Possibly acute viral labyrinthitis versus basilar CVA versus positional vertigo. 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 * Low phosphorus-start oral replacement * Diarrhea-clinically resolved continue supportive management . * Headache-on as needed analgesics * Full code * Prophylaxis heparin Plan * DC antibiotics * Phosphorus replacement * Symptomatic and supportive management Current Visit: Yes Medical - PN: Qual - VTE Deep Vein Thrombosis/Pulmonary Embolism Present on Admission: No
[2018-08-28] MEDS: VANCOMYCIN 1,500 MG in 0.9 % SODIUM CHLORIDE 500 ML IV SCH (11:44)
[2018-08-28] MEDS: ONDANSETRON 4 MG/2 ML VIAL IV PRN (18:40)
[2018-08-28] MEDS: BUTALB/ACETAMINOPHEN/CAFFEINE 1 TABLET PO PRN (18:41)
[2018-08-28] MEDS: NEUTRA PHOS 1 PACKET PO SCH (21:48)
[2018-08-28] MEDS: SENNOSIDES/DOCUSATE SODIUM 1 TAB TABLET PO SCH (21:48)
[2018-08-29 06:49] LABS: Mean Cell Volume 94.9 fL (80.0-100.0); Mean Corpuscular HGB Conc 33.7 g/dL (31.0-36.0); Platelet Count 186 K/mcL (140-440); RBC 4.98 M/mcL (4.50-5.90); Red Cell Distribution Width 11.8 % (11.5-14.5)
[2018-08-29 07:22] LABS: ALT/SGPT 26 U/l (0-40); Albumin 4.4 gm/dL (3.2-5.2); Albumin/Globulin Ratio 1.8 (1.0-2.3); Alkaline Phosphatase 39 U/L (39-117); Bilirubin,Direct < 0.2 mg/dL (0.0-0.3); Blood Urea Nitrogen 10 mg/dl (8-23); Gamma Glutamyl Transpeptidase 18 U/L (8-61); Uric Acid 3.6 mg/dL (2.5-8.0)
[2018-08-29] MEDS: BUTALB/ACETAMINOPHEN/CAFFEINE 1 TABLET PO PRN (07:58)
[2018-08-29] MEDS: ONDANSETRON 4 MG/2 ML VIAL IV PRN (07:58)
[2018-08-29 08:12] LABS: Eosinophils % (Manual) 1 % (0-7); Lymphocytes % 22 % (15-49); Monocytes % (Manual) 7 % (1-12); Platelet Estimate NORMAL (NORMAL); RBC Morphology NORMAL (NORMAL); Segmented Neutrophils % 70 % (38-78)
--- NOTE | 2018-08-29 10:04 | Discharge Summary ---
Medical - DS: Prov Patient information: Note initiated : 08/29/18 at 10:00 am Service Date, if different from initiated Date: [] Patient: Oliverio Her 63 y/o M admitted on 08/26/18 for Dizziness, Vomiting, Diarrhea. Chief Complaint: [] Date of admission: 08/26/18 16:25 Discharge date: 08/29/18 Primary care physician: Tripp Joseph Consults: 08/26/18 Consult to Physician [CONS] Stat Comment: Consulting Provider: Pablo Peguero Reason For Exam: Physician to Consult Medical - DS: Meds - Discharge Medications Prescriptions: Acetaminophen [Tylenol] 650 mg PO Q4-6HP PRN #30 tablet PRN Reason: Pain/Fever > 101 [place]al[place]/Acetaminophen/Caffeine [Fioricet] 1 tab PO Q6HP PRN #14 tablet PRN Reason: Headache Meclizine [Antivert] 12.5 mg PO BIDP PRN #10 tablet PRN Reason: Vertigo Ondansetron [Zofran ODT] 4 mg SL Q4-6HP PRN #10 tablet PRN Reason: Nausea Active and Home Medications: Home Medications baclofen 20 mg tablet 20 mg PO QID 08/16/17 [History Confirmed 08/26/18 Last Taken Unknown] cholecalciferol (vitamin D3) 2,000 unit capsule 2,000 unit PO ONCE 09/23/17 [History Confirmed 08/26/18 Last Taken Unknown] Multivit,Th Iron,Other Min [Complete Multivitamin] 1 each PO DAILY 08/26/18 [History Confirmed 08/26/18 Last Taken Unknown] Acetaminophen [Tylenol] 650 mg PO Q4-6HP PRN #30 tablet 08/29/18 [Rx Last Taken Unknown] Butalb/Acetaminophen/Caffeine [Fioricet] 1 tab PO Q6HP PRN #14 tablet 08/29/18 [Rx Last Taken Unknown] Meclizine [Antivert] 12.5 mg PO BIDP PRN #10 tablet 08/29/18 [Rx Last Taken Unknown] Ondansetron [Zofran ODT] 4 mg SL Q4-6HP PRN #10 tablet 08/29/18 [Rx Last Taken Unknown] Medical - DS: Hosp Hospital course: Discharge diagnosis * Fever/headache-likely acute viral syndrome. Clinically resolved. Afebrile. No evidence of meningitis on CSF analysis. Off antibiotics. MRI brain unremarkable. Normal inflammatory markers. * Acute vertigo-clinically improved. Perform vestibular rehab therapist. Continue meclizine as needed. Possibly acute viral labyrinthitis versus positional vertigo. * Low phosphorus-start oral replacement * Diarrhea-clinically resolved continue supportive management . * Headache-Clinically improved on analgesics. Brief hospital course Mr. Her is a 63 year old M with a history of substance abuse in the past/hepatitis C treated with [employer] who works at [employer] in [employer]. Patient comes in to [place] ER after he woke up this morning and did not half an hour started experiencing dizziness/vertigo associated with diarrhea 8-10 times. Symptoms progressed with increasing nausea secondary to spinning sensation. He felt that he was drifting to the left while walking and driving. He denies recent sick contact. Endorses to nonbloody soft diarrhea. He denies recent medication changes. He endorses associated headache along with myalgia or neck stiffness and mild photophobia. He was evaluated in the ER and was continued on crystalloids and symptomatic management however his symptoms continue to deteriorate with relentless vertigo on minimal head movement. He also spiked a temperature of 101. He underwent CT head along with CT angiogram which was unremarkable. Subsequently hospitalist service is consulted At the time of evaluation patient is fairly distraught due to vertigo. He endorses to aggravation of symptoms with minimal movement. Denies recent changes in medications. He endorses to recent ear infection along with painful left ear 10 days ago. Denies projectile vomiting. He also endorses dysuria and worried about chlamydia infection from recent unprotected intercourse. He denies high risk HIV behavior and quit IVDU 27 years ago. 08/27-patient doing well. No overnight events. Headache improving. Nausea improved. T-max 101. DC acyclovir as CSF studies unremarkable. De-escalate antibiotics in 24 hours. Continue telemetry monitoring. Persistent vertigo but improving. No associated hearing loss. MRI brain unremarkable 06/27-persistent vertigo. However much improved since previous day. Ambulating. Diarrhea resolved. Tolerating diet. Intermittent wheezing sensation. T-max 98. No overnight fever or chills. Occasional headache. No other concerns expressed by nursing staff. Continue supportive treatment/rehab however unable to discharge today due to persistent vertigo and not resolution of presenting symptoms. Anticipate discharge in 24-48 hours 08/29-Patient doing remarkably better. No overnight events. No concerns per staff. No fever chills nausea vomiting. Vertigo much improved. Headache minimal. Afebrile. Off antibiotics. Discharging today with advice to follow with PCP. Discharge diagnosis: . - Time Spent with Patient Total time spent providing and/or coordinating discharge services: Greater than 30 minutes Medical - DS: Exam - Constitutional Vitals: Vital Signs Temp Pulse Resp BP Pulse Ox 08/29/18 07:12 97.1 F 20 159/102 95 08/29/18 04:00 98.1 F 71 18 148/90 95 08/29/18 00:00 98.2 F 70 18 140/85 94 08/28/18 20:00 98.0 F 65 18 145/96 96 08/28/18 16:00 98.1 F 85 16 151/79 97 08/28/18 12:14 97.6 F 73 18 149/89 96 Intake and Output 08/28/18 08/29/18 08/29/18 21:59 05:59 13:59 Intake Total 700 300 Output Total 1050 300 Balance -350 0 Intake: Oral 700 300 Output: Void Amount 1050 300 Other: Meal Egg salad sandwich Percent of Meal Consumed 75% Feeding Ability Independent Urine Appearance Clear Urine Color Dark Yellow Urine Odor Strong # Voids 2 Weight 172 lb Medical - DS: Data Labs on day of discharge: Labs from last 24 hours 08/29/18 08/29/18 04:48 04:48 WBC 5.9 RBC 4.98 Hgb 15.9 Hct 47.3 MCV 94.9 MCH 32.0 MCHC 33.7 RDW 11.8 Plt Count 186 MPV 8.6 Total Counted 100 Seg Neutrophils % 70 Band Neutrophils % Not Reportable Lymphocytes % 22 Monocytes % (Manual) 7 Eosinophils % (Manual) 1 Platelet Estimate Normal RBC Morphology Normal Sodium 141 Potassium 3.5 Chloride 104 Carbon Dioxide 27 Anion Gap 10.0 BUN 10 Creatinine 0.9 GFR Calculation 91 Glucose 96 Uric Acid 3.6 Calcium 9.1 Phosphorus 3.0 Magnesium 1.9 Total Bilirubin 0.9 Direct Bilirubin < 0.2 GGT 18 AST 22 ALT 26 Alkaline Phosphatase 39 Lactate Dehydrogenase 171 Total Protein 6.9 Albumin 4.4 Globulin 2.5 Albumin/Globulin Ratio 1.8 Triglycerides 68 Preliminary micro results at discharge 08/26/18 20:23 Blood Culture - Preliminary Blood 08/26/18 20:10 Blood Culture - Preliminary Blood Medical - DS: A/P - Patient/Caregiver Discharge Instructions Activity: increase activity as tolerated Diet: Regular Diet Additional Instructions: Continue antinausea medications If persistent vertigo return to ER. Recommend outpatient vascular rehab Prescriptions: Acetaminophen [Tylenol] 650 mg PO Q4-6HP PRN #30 tablet PRN Reason: Pain/Fever > 101 Butalb/Acetaminophen/Caffeine [Fioricet] 1 tab PO Q6HP PRN #14 tablet PRN Reason: Headache Meclizine [Antivert] 12.5 mg PO BIDP PRN #10 tablet PRN Reason: Vertigo Ondansetron [Zofran ODT] 4 mg SL Q4-6HP PRN #10 tablet PRN Reason: Nausea - Problem Maintenance (1) Vertigo Status: Acute - Follow up Plan Follow up with: Tripp Joseph [Primary Care Provider] - Disposition: Home, Self-Care Prognosis: Good Rehab Potential: Fair I certify that the patient requires SNF services: No Overall status at discharge: patient is progressing back to baseline Medical - DS: Qual - VTE Deep Vein Thrombosis/Pulmonary Embolism Present on Admission: No
[2018-08-29] MEDS: DOCUSATE SODIUM 100 MG CAPSULE PO SCH (10:52)
[2018-08-29] MEDS: NEUTRA PHOS 1 PACKET PO SCH (10:53)
[2018-08-29] MEDS: MULTIVIT,THER IRON,CA,FA & MIN 1 TABLET PO SCH (10:53)
[2018-08-29] MEDS: HEPARIN 5,000 UNIT/ML VIAL SQ SCH (10:53)
== END 2018-08-29 11:04 | disposition home or self-care (01) ==
LOC: ED 06:15 → ICU 06:15 → MEDSUR 08-27 09:32
PROVIDERS: ADMIT Internal Medicine; ATTEND Internal Medicine